=== PATIENT | female | born 2000 | race Caucasian/White ===

== ENCOUNTER 2020-05-25 20:39 | Inpatient (IN) | payer MEDICAID, SELFPAY ==
--- NOTE | ~2020-05-25 | CT_ITS ---
EXAMINATION: CT abdomen pelvis w con DATE: 05/25/2020 22:14 INDICATION: Left lower quadrant abdominal pain. TECHNIQUE: Computed tomography (CT) of the abdomen and pelvis was performed with 100 mL Omnipaque-350 intravenous contrast. Automated exposure control and iterative reconstruction technique were employe d. The dose-length product was 228.90 mGy-cm. COMPARISON: None FINDINGS: Lung bases are clear. Heart size is normal. No pericardial or pleural effusion. Liver, gallbladder, s pleen, pancreas, bilateral adrenal glands and right kidney are normal. Geographic regions of decrease d parenchymal enhancement throughout the left kidney with enhancing thickened urothelium at the left renal collecting system consistent with pyelitis and pyelonephritis. Diffuse bladder wall thickening likely related to cystitis. There is mild Richard colonic diverticulosis without adjacent inflammator y change to suggest diverticulitis. Small bowel and appendix are normal. There are several bilateral adnexa are normal with a few follicles at both ovaries. No free intraperitoneal gas or fluid. No path ologically enlarged abdominal or pelvic lymphadenopathy. Schmorl's node along the posterior superior endplate of S1. IMPRESSION: 1. Findings consistent with cystitis and left pyelonephritis. Correlate with urinalysis. Reviewed, dictated and finalized at location A. IMPRESSION: 1. Findings consistent with cystitis and left pyelonephritis. Correlate with ur inalysis.
--- NOTE | ~2020-05-25 | XR_ITS ---
EXAMINATION: XR chest 1V portable DATE: 05/25/2020 21:18 INDICATION: Shortness of breath, fever, body aches and lower back pain. TECHNIQUE: frontal view of the chest was obtained. COMPARISON: None FINDINGS: The lungs are clear with no focal airspace opacities, pulmonary edema, pleural effusion or pneumothor ax. The cardiomediastinal silhouette is normal. Visualized bones and soft tissues are unremarkable. IMPRESSION: 1. No acute cardiopulmonary disease. Reviewed, dictated and finalized at location A.
[2020-05-25 20:44] VITALS: BP 127/79; PULSE 140; RESP 22; TEMP 39.2; O2SAT 98
--- NOTE | 2020-05-25 20:55 | ECG_ITS ---
Measurements Intervals [place] Rate: 122 P: 54 CT: 127 QRS: 60 QRSD: 80 T: 22 QT: 286 QTc: 408 Interpretive Statements SINUS TACHYCARDIA ABNORMAL ECG Electronically Signed On 05-26-2020 6:57:17 CDT by Lorenzo Lamb D.O.
--- NOTE | 2020-05-25 21:08 | ED.GENADULT ---
HPI - General Adult General Chief complaint: Shortness of Breath/Dyspnea Stated complaint: Fever, Body Pain, Covid-19 Swab Time Seen by Provider: 05/25/20 20:53 Source: patient Mode of arrival: ambulatory History of Present Illness HPI narrative: Patient is a 20 y/o female complaining of fever, left lower abdominal pain and left back for last 1-2 days. She did not check her temperature and is not sure how high her fever was. She took Tylenol, which helped her fever. She denies any sorethroat, cough, vomiting or diarrhea. Of note, patient does not speak Indonesian. Interview is done through video spinning and winding supervisor. Related Data Home Medications Medication Instructions Recorded Confirmed No Home Medications 05/25/20 05/25/20 Allergies Allergy/AdvReac Type Severity Reaction Status Date / Time No Known Allergies Allergy Verified 05/25/20 21:04 Review of Systems Constitutional: Constitutional: Reports chills, Reports fever(s), Denies headache(s) and Denies weakness Eyes: Eyes: Denies blurry vision ENT: Denies headache(s) and Denies neck pain Cardiovascular: Cardiovascular: Denies chest pain and Denies dyspnea Respiratory: Respiratory: Denies cough and Reports dyspnea Gastrointestinal: Gastrointestinal: Reports abdominal pain, Denies diarrhea, Denies nausea and Denies vomiting Genitourinary: Genitourinary: Denies hematuria, Reports nocturia, Reports dysuria and Reports flank pain Musculoskeletal: Musculoskeletal: Reports back pain and Denies neck pain Neurologic: Denies headache(s) and Denies weakness PMFSH Social History Social History Smoking status: Never smoker Gender identity (if verbalized by the patient): Female Sexual Orientation (if Verbalized by the Patient): Straight or Heterosexual Exam Const: General: no acute distress and well developed Orientation/consciousness: oriented to person, oriented to place, oriented to time and patient oriented x3 HENMT: Head: normocephalic Ears: external ears normal General nose exam: Normal external nose present Eyes: General: appearance normal, both eyes and all related structures Conjunctivae: conjunctivae normal Neck: Neck: normal visual inspection and full ROM Chest: Chest palpation & inspection: normal inspection of the chest and no tenderness Resp: Effort & Inspection: normal respiratory effort Auscultation: clear to auscultation bilaterally Cardio: Rate: tachycardic Rhythm: regular rhythm GI: GI Palp: No abdominal tenderness and Yes Soft to palpation Skin: General skin exam: normal color and turgor normal Neuro: General: oriented to person, oriented to place, oriented to time and patient oriented x3 Cognition (Neuro): normal cognition Extrem: General: normal to inspection, full ROM and no pedal edema Psych: Appearance: grossly normal Mental Status: mental status grossly normal Affect: normal affect Course Consultations Consultation #1: Discussed with Dr. Fang, who agrees to admit. Date: 05/25/20 Time: 23:22 Vital Signs Vital signs: Vital Signs Temperature 39.2 C H 05/25/20 20:44 Pulse Rate 140 H 05/25/20 20:44 Respiratory Rate 22 H 05/25/20 20:44 Blood Pressure 127/79 05/25/20 20:44 Pulse Oximetry 98 05/25/20 20:44 Temperature 36.7 C 05/26/20 08:00 Pulse Rate 95 05/26/20 09:00 Respiratory Rate 20 05/26/20 09:00 Blood Pressure 112/58 L 05/26/20 08:00 Pulse Oximetry 100 05/26/20 09:00 Medical Decision Making Vital Signs Vital Signs: Vital Signs Temperature 39.2 C H 05/25/20 20:44 Pulse Rate 140 H 05/25/20 20:44 Respiratory Rate 22 H 05/25/20 20:44 Blood Pressure 127/79 05/25/20 20:44 Pulse Oximetry 98 05/25/20 20:44 Temperature 36.7 C 05/26/20 08:00 Pulse Rate 95 05/26/20 09:00 Respiratory Rate 20 05/26/20 09:00 Blood Pressure 112/58 L 05/26/20 08:00 Pulse Oximetry 100 05/26/20 09:00 Lab Data Result
[2020-05-25 21:26] LABS: Basophils Percent Auto 0.1 % (0.2-1.2); Hematocrit 41.3 % (37.0-47.0); Hemoglobin 14.1 g/dL (12.0-15.0); Immature Granulocyte Absolute 0.11 K/mm3 (0.00-0.031); Immature Granulocyte Percent A 0.7 % (0-0.5); Lymphocytes Absolute Auto 1.01 K/mm3 (0.9-3.2); Lymphocytes Percent Auto 6.3 % (18.3-44.2); Mean Corpuscular HGB Conc 34.1 g/dl (32-36); Mean Corpuscular Hemoglobin 29.2 pg (26-34); Mean Corpuscular Volume 85.5 fl (80-100); Mean Platelet Volume 9.2 fl (7.4-10.4); Monocytes Absolute Auto 1.3 K/mm3 (0.1-0.6); Monocytes Percent Auto 8.4 % (2.6-8.5); Neutrophils Absolute Auto 13.4 K/mm3 (1.3-6.7); Neutrophils Percent Auto 84.5 % (45.5-73.1); Platelet Count Result 314 k/mm3 (150-375); Red Blood Count 4.83 M/mm3 (4.2-5.4); Red Cell Distribution Width 12.5 % (11.5-14.5); White Blood Count 15.9 K/mm3 (4.5-10.0)
[2020-05-25 21:43] LABS: Alanine Aminotransferase 16 U/L (4-35); Albumin Level 4.3 g/dL (3.5-5.1); Alkaline Phosphatase 102 U/L (38-126); Anion Gap 10 mmol/L (8-16); Aspartate Amino Transferase 20 U/L (14-36); Bilirubin,Total 0.8 mg/dL (0.2-1.3); Blood Urea Nitrogen 9 mg/dL (7-17); Calcium 8.3 mg/dL (8.4-10.2); Carbon Dioxide 24 mmol/L (22-30); Chloride 101 mmol/L (98-107); Estimated Glomerular Filt Rate > 60; Glucose 116 mg/dL (65-105); Potassium 3.4 mmol/L (3.4-5.0); Sodium 135 mmol/L (137-145)
[2020-05-25 21:52] LABS: CRP 22.9 mg/dL (<1.0)
[2020-05-25] MEDS: ACETAMINOPHEN 325 MG TABLET 650 MG PO (21:52)
--- NOTE | 2020-05-25 22:00 | PC.NURSE ---
Translation line used to speak with patient regarding procedures.
[2020-05-25 22:10] LABS: Add Urine Microscopic? YES; Appearance Urine Cloudy (Clear); Bacteria Urine 1+ /hpf; Bilirubin Urine Negative (Negative); Blood Urine 2+ (Negative); Color Urine Yellow (Yellow); Glucose Urine UA Negative (Negative); Ketones Urine 1+ mg/dL (Negative); Leukocyte Esterase Ur 3+ LEU/UL (Negative); Mucus Urine Rare /lpf; Nitrate Urine Positive (Negative); Protein Urine 2+ mg/dL (Negative); Specific Grav Ur 1.018 (1.001-1.035); Squamous Epithelial Cell Urine Moderate /hpf (Few); WBC Urine >75 /hpf
[2020-05-25 22:12] LABS: Lactic Acid Reflex 0.5 mmol/L (0.7-2.1)
--- NOTE | 2020-05-25 23:15 | PC.NURSE ---
Translation line #[id number] used to inform patient and friend on Dr Suarez's intention to admit and diagnosis. Patient's questions answered via line. Patient in agreement Dr Suarez made aware
[2020-05-25 23:52] VITALS: BP 124/75; PULSE 108; RESP 18; TEMP 37.9; O2SAT 98
[2020-05-26] VITALS (10 sets, daily range): BP systolic 106–157; BP diastolic 57–80; PULSE 80–135; RESP 16–20; TEMP 36.7–39.6; O2SAT 99–100
--- NOTE | 2020-05-26 00:26 | ADMGEN ---
This patient, Patsy Coffman, was admitted to [facility] Surg Room 327-01. Patient/family oriented to hospital policies and general routines including ID bracelet, bed and alarms, visiting hours, pain management, procedures, bathroom and other care routines, personal items, smoking policy, room service/diet, and visiting hours. Valuables list has been completed. Information on how to activate the Rapid Response Team has been discussed. Patient/Family are encouraged to report perceived risks to care and to ask questions if they do not understand what they are told or what they should do.
[2020-05-26] MEDS: SODIUM CHLORIDE 0.9% IV 1,000 ML 125 ML IV CONT ×3 (00:28→22:06)
[2020-05-26 06:40] LABS: Basophils Percent Auto 0.2 % (0.2-1.2); Hematocrit 37.2 % (37.0-47.0); Hemoglobin 12.5 g/dL (12.0-15.0); Immature Granulocyte Absolute 0.09 K/mm3 (0.00-0.031); Immature Granulocyte Percent A 0.6 % (0-0.5); Lymphocytes Absolute Auto 1.54 K/mm3 (0.9-3.2); Lymphocytes Percent Auto 10.8 % (18.3-44.2); Mean Corpuscular HGB Conc 33.6 g/dl (32-36); Mean Corpuscular Hemoglobin 29.1 pg (26-34); Mean Corpuscular Volume 86.7 fl (80-100); Mean Platelet Volume 8.9 fl (7.4-10.4); Monocytes Absolute Auto 1.1 K/mm3 (0.1-0.6); Neutrophils Absolute Auto 11.4 K/mm3 (1.3-6.7); Neutrophils Percent Auto 80.4 % (45.5-73.1); Platelet Count Result 273 k/mm3 (150-375); Red Blood Count 4.29 M/mm3 (4.2-5.4); Red Cell Distribution Width 12.4 % (11.5-14.5); White Blood Count 14.2 K/mm3 (4.5-10.0)
[2020-05-26 06:53] LABS: Anion Gap 7 mmol/L (8-16); Blood Urea Nitrogen 6 mg/dL (7-17); Carbon Dioxide 27 mmol/L (22-30); Chloride 102 mmol/L (98-107); Estimated CRCL calculation 0 ml/min; Estimated Glomerular Filt Rate > 60; Glucose 106 mg/dL (65-105); Potassium 3.6 mmol/L (3.4-5.0); Sodium 136 mmol/L (137-145)
--- NOTE | 2020-05-26 12:07 | PM.IMHP ---
H&P: HPI History of Present Illness Date/Time: 05/26/20 12:07 Chief complaint: sepsis/pyelonephritis Narrative: Date of admission: 05/25/2020 Date of service: 05/26/2020 Patsy Coffman is a healthy 20 year old female who presented to the emergency department on 05/25/2020 with complaints of fever, body aches, and back pain. About 3 days ago, she developed left-sided lower abdominal pain. The next day she had fevers with T-max 104.0? and back pain on her left side. The following day she developed nausea, vomiting, headache, and body aches. She noticed that she was urinating frequently. Any time she took a drink of water she felt the urge to urinate. She denied dysuria or hematuria. She stated that when she developed a fever, she began taking amoxicillin. She took 3 doses of 500 mg amoxicillin. She got this medication from a pharmacy in [facility]. She is currently visiting here to see friends in the [place] At this time, she is feeling much better. She is anxious to leave. She still has back pain but has improved. She denies abdominal pain, nausea, vomiting, fever, chills, or diarrhea. She denies shortness of breath, cough, or chest pain. Her LMP was 1 week ago. Patient speaks Setswana and communication is performed with assistance of video tutor coordinator. Review of Systems Review of Systems: Narrative: A 12 point review of systems was reviewed with pertinent positives and negatives as per HPI. [facility] Past Medical History Medical History (Updated 05/26/20 @ 16:39 by Rocio Suresh PA-C) Healthy female adult Family History Family History (Updated 05/26/20 @ 16:41 by Rocio Suresh PA-C) Mother Gastric cancer Father No problems noted. Social History Social History (Updated 05/26/20 @ 16:43 by Rocio Suresh PA-C) Social History: Ms. Rojas lives in [facility] and is travelling to [place] for 2 months to visit friends. She lists her friend Jose Enrique as her surrogate decision maker ([phone]). She would like to be a full code. Smoking status: Never smoker Alcohol intake: current Alcohol use details: 1 drink per month Gender identity (if verbalized by the patient): Female Sexual Orientation (if Verbalized by the Patient): Straight or Heterosexual Meds Home Medications and Allergies Home Medications Medication Instructions Recorded Confirmed Type medroxyprogesterone [Depo-Provera] 150 mg IM MONTHLY 05/26/20 05/26/20 History Allergies Allergy/AdvReac Type Severity Reaction Status Date / Time No Known Allergies Allergy Verified 05/25/20 21:04 Vital Signs Vital Signs - 24 hr 05/25/20 20:44 05/25/20 23:52 05/26/20 00:24 Temperature 102.6 F H 100.2 F H 103.2 F H Pulse Rate 140 H 108 H 135 H Respiratory Rate 22 H 18 20 Blood Pressure 127/79 124/75 157/77 H Pulse Oximetry 98 98 99 05/26/20 01:03 05/26/20 01:44 05/26/20 04:00 Temperature 103.2 F H 100.4 F H 98.2 F Pulse Rate 95 Respiratory Rate 20 Blood Pressure 106/57 L Pulse Oximetry 100 05/26/20 08:00 05/26/20 09:00 Temperature 98.0 F Pulse Rate 99 95 Respiratory Rate 18 20 Blood Pressure 112/58 L Pulse Oximetry 100 100 Exam Narrative: Exam Narrative: Ms. Coffman is a well-nourished 20-year-old female who is lying supine in bed. She appears comfortable and is in no acute respiratory distress. HR 95, BP 106/57, R 20, T 98.7?, 100% on room air Neuro: awake, alert and oriented x4, speech clear, no focal neuro deficits noted HEENMT: normocephalic, atraumatic, EOMI, sclerae anicteric, moist oral mucosa, tongue midline, nares patent Neck: supple, no lymphadenopathy Respiratory: clear to auscultation bilaterally, nonlabored breathing Cardio: regular rate, regular rhythm, no murmur noted Abdomen: nondistended, normoactive bowel sounds, soft, nontender to palpation, no rigidity or guarding : left CVA tenderness Extremities: no edema, erythema, cyanosis, clubbi
[2020-05-26 14:24] LABS: SARS-CoV-2 RNA PCR Negative
[2020-05-26] MEDS: ACETAMINOPHEN 325 MG TABLET 650 MG PO (22:06)
[2020-05-27 02:00] VITALS: BP 118/71; PULSE 102; RESP 16; TEMP 36.9; O2SAT 99
[2020-05-27 06:00] VITALS: BP 112/67; PULSE 95; RESP 16; TEMP 36.9; O2SAT 100
[2020-05-27 06:14] LABS: Basophils Percent Auto 0.2 % (0.2-1.2); Eosinophils Percent Auto 0.2 % (0-4.4); Hematocrit 35.4 % (37.0-47.0); Hemoglobin 11.8 g/dL (12.0-15.0); Immature Granulocyte Absolute 0.04 K/mm3 (0.00-0.031); Immature Granulocyte Percent A 0.4 % (0-0.5); Lymphocytes Percent Auto 21.6 % (18.3-44.2); Mean Corpuscular HGB Conc 33.3 g/dl (32-36); Mean Corpuscular Hemoglobin 28.9 pg (26-34); Mean Corpuscular Volume 86.8 fl (80-100); Mean Platelet Volume 9.2 fl (7.4-10.4); Monocytes Absolute Auto 1.4 K/mm3 (0.1-0.6); Monocytes Percent Auto 14.8 % (2.6-8.5); Neutrophils Absolute Auto 5.8 K/mm3 (1.3-6.7); Neutrophils Percent Auto 62.8 % (45.5-73.1); Platelet Count Result 282 k/mm3 (150-375); Red Blood Count 4.08 M/mm3 (4.2-5.4); Red Cell Distribution Width 12.3 % (11.5-14.5); White Blood Count 9.3 K/mm3 (4.5-10.0)
[2020-05-27 06:27] LABS: Anion Gap 7 mmol/L (8-16); Blood Urea Nitrogen 5 mg/dL (7-17); Calcium 7.8 mg/dL (8.4-10.2); Carbon Dioxide 26 mmol/L (22-30); Chloride 104 mmol/L (98-107); Estimated CRCL calculation 0 ml/min; Estimated Glomerular Filt Rate > 60; Glucose 93 mg/dL (65-105); Potassium 3.5 mmol/L (3.4-5.0); Sodium 137 mmol/L (137-145)
[2020-05-27 08:00] VITALS: PULSE 95; RESP 16; O2SAT 100
[2020-05-27] MEDS: SODIUM CHLORIDE 0.9% IV 1,000 ML 125 ML IV CONT (10:31)
[2020-05-27 14:00] VITALS: BP 134/76; PULSE 75; RESP 16; TEMP 36.6; O2SAT 100
--- NOTE | 2020-05-27 14:26 | PM.DS ---
DS: Admitting Diagnosis Admitting Diagnosis Admitting Diagnosis: sepsis/pyelonephritis DS: Discharge Diagnosis Discharge Diagnosis (1) Sepsis: Qualifiers: Sepsis acute organ dysfunction status: unspecified Sepsis type: sepsis due to unspecified organism Qualified Code(s): A41.9 - Sepsis, unspecified organism Code(s): A41.9 - Sepsis, unspecified organism Status: Acute Assessment and Plan: Patient met SIRS criteria based on leukocytosis, fever, and tachycardia. Source of infection was urinary. Lactic was 0.5. She was started on IV Rocephin and was given IV fluids. Sepsis resolved. Preliminary blood cultures showed NGTD and final cultures will be monitored. (2) Pyelonephritis: Code(s): N12 - Tubulo-interstitial nephritis, not specified as acute or chronic Status: Acute Assessment and Plan: UA was grossly abnormal. CT a/p shows findings consistent with cystitis and left pyelonephritis. She had left CVA tenderness. Urine culture grew >100,000 CFU E. coli with sensitivity to Rocephin. She will continue PO Cefdinir bid for 10 days. She was scheduled for a follow up appointment on 06/09/20. DS: Summary Hospital Course Reason for hospitalization: Fever Hospital Course: Date of admission: 05/25/2020 Date of discharge: 05/27/2020 Patsy Coffman is a healthy 20 year old female who presented to the emergency department on 05/25/2020 with complaints of fever, body aches, and back pain. About 3 days ago, she developed left-sided lower abdominal pain. The next day she had fevers with T-max 104.0? and back pain on her left side. The following day she developed nausea, vomiting, headache, and body aches. She endorsed frequency but dysuria or hematuria. She stated that when she developed a fever, she began taking amoxicillin. She took 3 doses of 500 mg amoxicillin. She got this medication from a pharmacy in [facility]. She is currently visiting the [place] to see friends. Of note, patient is Frisian speaking and all communication was performed with assistance of video proposal consultant. At presentation, she was febrile at , HR 140, WBC 14.2, lactic 0.5, UA grossly abnormal. Bedside test was negative. She was swabbed for COVID-19 which was negative. She was admitted to the hospitalist service for further evaluation and management. Please see above for further details. Her sepsis resolved. She remained afebrile >36 hours and leukocytosis resolved. CVA tenderness resolved. She began feeling much better and was eager for discharge. Given her overall improvement and stable vitals, she was determined to no longer require inpatient care. I spent extensive time counseling her on antibiotic therapy and worrisome signs and symptoms for which to return. I encouraged her to maintain adequate hydration. I scheduled her an appointment at [facility] in [place] with a Frisian speaking provider for follow up in 1.5 weeks and she is aware that she needs to attend this appointment. All questions were answered. She was discharged in hemodynamically stable condition on 05/27/2020. Status at Discharge Functional status at discharge: independent ambulation Overall status at discharge: patient is back to baseline Time Spent with Patient Time attestation: Total time spent providing and/or coordinating discharge services:39 minutes Time spent: Greater than 30 minutes Exam Narrative: Exam Narrative: Ms. Cofmfan is a well-nourished 20-year-old female who is lying supine in bed. She appears comfortable and is in no acute respiratory distress. HR 75, BP 134/76, R 16, T 97.8?, 100% on room air Neuro: awake, alert and oriented x4, speech clear, no focal neuro deficits noted HEENMT: normocephalic, atraumatic, EOMI, sclerae anicteric, moist oral mucosa, tongue midline, nares patent Neck: supple, no lymphadenopathy Respiratory: clear to auscultation bilaterally, nonlabored breathing Cardio: regular rate, regular r
== END 2020-05-27 17:50 | disposition home or self-care (01) | DRG 720 ==
LOC: ANHED 23:35 → ANH3MEDSUR 05-26 00:06
PROVIDERS: Physician Assistant; Admitting Provider Family Medicine; Emergency Provider Emergency Medicine; Visit Provider Internal Medicine
DX: A41.9 Sepsis, unspecified organism (principal); N12 Tubulo-interstitial nephritis, not specified as acute or chronic; B96.20 Unspecified Escherichia coli [E. coli] as the cause of diseases classified elsewhere; Z20.828 Contact with and (suspected) exposure to other viral communicable diseases; Z79.3 Long term (current) use of hormonal contraceptives
CPT/HCPCS: 36415; 71045; 74177; 80048; 80053; 81001; 81025; 83605; 85025; 86140; 87040; 87077; 87086; 87088; 87186; 87635; 93005; 96361; 96365; 96375; 99285; A9270; C9803; G0378; G0379; J0131; J0696; J7030; J7120; Q9967; U0003

== ENCOUNTER 2020-06-18 19:51 | Inpatient (IN) | payer MEDICAID, SELFPAY ==
--- NOTE | ~2020-06-18 | CT_ITS ---
EXAMINATION: CT abdomen pelvis w con EXAM DATE: 06/18/2020 22:27 INDICATION: Abdominal pain, fever. TECHNIQUE: Spiral CT of the abdomen and pelvis was performed following intravenous injection of 100 m L Omnipaque 350. Axial, coronal and sagittal images were reviewed. The dose-length product (DLP) fo r this examination was 301.36 mGy-cm. The exposure was tailored according to patient size (auto mA e xposure control), and iterative reconstruction (ASIR) was used as additional dose reduction technique . Comparison is made to prior examination from 05/25/2020. FINDINGS: The liver, spleen, adrenal glands and pancreas are unremarkable. Gallbladder is unremarkab le. No biliary obstruction. There is enhancing left ureteral urothelium, and some regions of heterog eneous left renal enhancement, appearance consistent with pyelonephritis. No obstructive nephropathy. The uterus is anteverted and morphologically normal. The bladder is unremarkable. There is no ret roperitoneal or pelvic lymphadenopathy. Some respiratory motion, the appendix is not positively identified. The cecal base is located deep in the pelvis. The stomach and small bowel are unremarkable. There is moderate amount of colonic stoo l. No free intraperitoneal gas. The heart is normal in size. There are no pericardial or pleural effusions. The lung bases are unremarkable. There are no osteoblastic or osteolytic lesions identi fied. IMPRESSION: Acute left-sided pyelonephritis, similar appearance to exam from 3 weeks ago. Reviewed, dictated and finalized at location A.
[2020-06-18 20:08] VITALS: BP 149/79; PULSE 140; RESP 18; TEMP 39.5; O2SAT 100
--- NOTE | 2020-06-18 20:08 | ED.ABDPAIN ---
HPI - Abdominal Pain General Chief Complaint: Urogenital-Female Stated Complaint: fever, back pain Time Seen by Provider: 06/18/20 20:05 Source: RN notes reviewed History of Present Illness HPI narrative: Patient presents emergency department from home for flank pain and fever. Patient states symptoms began last night. States she has pain located in the right flank that radiates around to the abdomen. Associated with a fever that began last night. Patient denies any cough shortness of breath vomiting diarrhea or any other symptoms. Was admitted to [facility] proximally 1 month ago with pyelonephritis and finished all medications at that time but is had no follow-up since that time Related Data Home Medications Medication Instructions Recorded Confirmed medroxyprogesterone [Depo-Provera] 150 mg IM MONTHLY 05/26/20 05/26/20 Allergies Allergy/AdvReac Type Severity Reaction Status Date / Time No Known Allergies Allergy Verified 06/18/20 20:13 Review of Systems Review of Systems: Narrative: Gen.: Denies fevers or chills ENT: Denies congestion Respiratory: Denies shortness of breath or cough CV: Denies chest pain or palpitations GI: See HPI denies burning, urgency, frequency or hematuria Musculoskeletal: Denies back pain or muscle pain Neuro: Denies numbness, tingling, weakness or focal weakness Skin: Denies rash Except as documented, all other systems reviewed and negative [facility] Past Medical History Medical History Healthy female adult Family History Family History (Updated 05/26/20 @ 16:41 by Rocio Suresh PA-C) Mother Gastric cancer Father No problems noted. Social History Social History Social History: Ms. Rojas lives in [facility] and is travelling to [place] for 2 months to visit friends. She lists her friend Jose Enrique as her surrogate decision maker ([phone]). She would like to be a full code. Smoking status: Never smoker Alcohol intake: current Gender identity (if verbalized by the patient): Female Exam Narrative: Exam Narrative: APPEARANCE: No acute distress, nontoxic, resting in bed EYES: EOMI HEENT: Normocephalic, atraumatic, OMM RESPIRATORY: No respiratory distress Clear to auscultation bilaterally with no rhonchi wheezing or rales. CARDIOVASCULAR: Tachycardic and regular without murmurs rubs or gallops. ABDOMINAL: Soft, nontender, nondistended, no rebound or guarding bilateral flank tenderness to palpation MUSCULOSKELETAl: Moves all extremities. No clubbing, cyanosis or edema. NEURO: Awake and alert. Following commands, speech normal, no focal deficits SKIN:: Warm, dry. No rashes lesions or abrasions PSYCHIATRIC: Normal affect/mood, Course Course Emergency Course: Discussed with Dr. Fang presentation work-up. Agrees with admission at this time. At this time with recurrent pyelonephritis will put in a.m. consult to urology Discussed with patient and family results of workup and diagnosis. Discussed need for admission. Patient and family understand and agree to current treatment plan Vital Signs Vital signs: Vital Signs Temperature 103.1 F H 06/18/20 20:08 Pulse Rate 140 H 06/18/20 20:08 Respiratory Rate 18 06/18/20 20:08 Blood Pressure 149/79 H 06/18/20 20:08 Pulse Oximetry 100 06/18/20 20:08 Temperature 98.6 F 06/18/20 21:50 Pulse Rate 113 H 06/18/20 21:30 Respiratory Rate 16 06/18/20 21:30 Blood Pressure 109/58 L 06/18/20 21:30 Pulse Oximetry 98 06/18/20 21:30 MDM - Abdominal Pain Lab Data Result diagrams: 06/18/20 20:30 06/18/20 20:30 Labs: Lab Results 06/18/20 06/18/20 06/18/20 Range/Units 20:30 20:30 20:30 WBC 12.6 H (4.5-10.0) K/mm3 RBC 5.03 (4.2-5.4) M/mm3 Hgb 14.8 D (12.0-15.0) g/dL Hct 43.6 (37.0-47.0) % MCV 86.7 (80-100)
[2020-06-18] MEDS: SODIUM CHLORIDE 0.9% IV 1,000 ML 999 ML IV CONT ×2 (20:36)
[2020-06-18 20:38] LABS: Basophils Percent Auto 0.2 % (0.2-1.2); Hematocrit 43.6 % (37.0-47.0); Hemoglobin 14.8 g/dL (12.0-15.0); Immature Granulocyte Absolute 0.05 K/mm3 (0.00-0.031); Immature Granulocyte Percent A 0.4 % (0-0.5); Lymphocytes Absolute Auto 0.97 K/mm3 (0.9-3.2); Lymphocytes Percent Auto 7.7 % (18.3-44.2); Mean Corpuscular HGB Conc 33.9 g/dl (32-36); Mean Corpuscular Hemoglobin 29.4 pg (26-34); Mean Corpuscular Volume 86.7 fl (80-100); Mean Platelet Volume 9.3 fl (7.4-10.4); Monocytes Absolute Auto 1.1 K/mm3 (0.1-0.6); Monocytes Percent Auto 8.6 % (2.6-8.5); Neutrophils Absolute Auto 10.5 K/mm3 (1.3-6.7); Neutrophils Percent Auto 83.1 % (45.5-73.1); Platelet Count Result 319 k/mm3 (150-375); Red Blood Count 5.03 M/mm3 (4.2-5.4); Red Cell Distribution Width 13.2 % (11.5-14.5); White Blood Count 12.6 K/mm3 (4.5-10.0)
[2020-06-18 20:50] LABS: Alanine Aminotransferase 19 U/L (4-35); Albumin Level 4.8 g/dL (3.5-5.1); Alkaline Phosphatase 96 U/L (38-126); Anion Gap 11 mmol/L (8-16); Aspartate Amino Transferase 26 U/L (14-36); Bilirubin,Total 0.8 mg/dL (0.2-1.3); Blood Urea Nitrogen 7 mg/dL (7-17); Carbon Dioxide 26 mmol/L (22-30); Chloride 99 mmol/L (98-107); Estimated CRCL calculation 108 ml/min; Estimated Glomerular Filt Rate > 60; Glucose 121 mg/dL (65-105); Lactic Acid Reflex 2.9 mmol/L (0.7-2.1); Potassium 3.7 mmol/L (3.4-5.0); Sodium 136 mmol/L (137-145)
[2020-06-18 21:16] LABS: Add Urine Microscopic? YES; Appearance Urine Cloudy (Clear); Bacteria Urine 3+ /hpf; Bilirubin Urine Negative (Negative); Blood Urine 3+ (Negative); Color Urine Yellow (Yellow); Glucose Urine UA Negative (Negative); Ketones Urine Negative (Negative); Leukocyte Esterase Ur 3+ LEU/UL (Negative); Mucus Urine Few /lpf; Nitrate Urine Positive (Negative); Protein Urine 1+ mg/dL (Negative); RBC Urine 21-50 /hpf (0-2); Squamous Epithelial Cell Urine Many /hpf (Few); WBC Urine >75 /hpf
[2020-06-18 21:30] VITALS: BP 109/58; PULSE 113; RESP 16; O2SAT 98
[2020-06-18 21:50] VITALS: TEMP 37
[2020-06-18 23:00] VITALS: BP 121/70; PULSE 101; RESP 18; O2SAT 99
--- NOTE | 2020-06-18 23:20 | PM.IMHP ---
H&P: HPI History of Present Illness Date/Time: 06/18/20 23:20 Chief complaint: fever, back pain Narrative: This is a pleasant 20 year old female who was recently admitted one month ago for pyelonephritis and who returned to the hospital today with a complaint of right flank pain that radiates down towards her groin with associated fever that started last night. She believes that her last urinary tract infection was on the left side. She denies any burning urination, hematuria, nausea, vomiting, diarrhea, headache, chest pain, shortness of breath, cough, or LE swelling. CT abd pelvis demonstrated acute left-sided pyelonephritis, similar appearance to exam from 3 weeks ago. Routine labs demonstrated that the patient is severely septic tonight. Urinalysis was grossly abnormal. Last urine culture grew out E. coli. She has been treated w/ IV fluids and antibiotics. No other complaints. Review of Systems Review of Systems: All systems reviewed & are unremarkable except as noted in HPI and below PMFSH Past Medical History Medical History Healthy female adult Family History Family History Mother Gastric cancer Father No problems noted. Social History Social History Social History: Ms. Rojas lives in [place] and is travelling to [place] for 2 months to visit friends. She lists her friend Jose Enrique as her surrogate decision maker ([phone]). She would like to be a full code. Smoking status: Never smoker Alcohol intake: current Gender identity (if verbalized by the patient): Female Meds Home Medications and Allergies Home Medications Medication Instructions Recorded Confirmed Type medroxyprogesterone [Depo-Provera] 150 mg IM MONTHLY 05/26/20 05/26/20 History Allergies Allergy/AdvReac Type Severity Reaction Status Date / Time No Known Allergies Allergy Verified 06/18/20 20:13 Vital Signs Vital Signs - 24 hr 06/18/20 20:08 06/18/20 21:30 06/18/20 21:50 Temperature 39.5 C H 37.0 C Pulse Rate 140 H 113 H Respiratory Rate 18 16 Blood Pressure 149/79 H 109/58 L Pulse Oximetry 100 98 Exam Const: General: cooperative, no acute distress, alert and awake Nutritional Appearance: well nourished Orientation/consciousness: patient oriented x3 HENMT: Head: normal to inspection General nose exam: Normal external nose present Face and sinus: normal facial exam Mouth: Yes Normal oral and palatal mucosa present and Yes oropharynx normal Eyes: Pupils: Equal, round and reactive pupils present EOM: EOMs intact bilaterally Neck: Neck: supple and no JVD Thyroid: thyroid normal Lymphatic: lymphadenopathy not noted Resp: Effort & Inspection: normal respiratory effort Auscultation: clear to auscultation bilaterally Cardio: Rate: regular rate Rhythm: regular rhythm Heart sounds: no murmurs GI: Inspection: normal to inspection Auscultation: normal bowel sounds Back/Spine/Pelvis: Back: CVA tenderness (right sided++ ) Skin: General skin exam: normal color and no rashes or lesions noted Neuro: General: patient oriented x3 Cranial nerves: Yes CN's II-XII intact bilaterally and Yes Equal, round and reactive pupils present Speech: normal speech Motor exam (neuro): 5/5 motor strength present throughout Sensory Exam: normal sensation Extrem: General: normal to inspection and no edema Psych: Mental Status: mental status grossly normal Affect: normal affect H&P: Results Labs Labs: Short CBC 06/18/20 Range/Units 20:30 WBC 12.6 H (4.5-10.0) K/mm3 Hgb 14.8 D (12.0-15.0) g/dL Hct 43.6 (37.0-47.0) % Plt Count 319 (150-375) k/mm3 BMP 06/18/20 20:30 Sodium 136 L Potassium 3.7 Chloride 99 Carbon Dioxide 26 BUN 7 Creatinine 0.60 L Glucose 121 H Calcium 9.0 Liver F
[2020-06-18 23:36] LABS: Reflex Lactic Acid Yes or No Add Lactic
[2020-06-19] VITALS (11 sets, daily range): BP systolic 116–140; BP diastolic 53–81; PULSE 102–126; RESP 16–21; TEMP 36.8–39.2; O2SAT 100
[2020-06-19 00:12] LABS: Lactic Acid 0.7 mmol/L (0.7-2.1)
--- NOTE | 2020-06-19 00:29 | ADMGEN ---
This patient, Patsy Coffman, was admitted to Medical Room 245-. Patient/family oriented to hospital policies and general routines including ID bracelet, bed and alarms, visiting hours, pain management, procedures, bathroom and other care routines, personal items, smoking policy, room service/diet, and visiting hours. Valuables list has been completed. Information on how to activate the Rapid Response Team has been discussed. Patient/Family are encouraged to report perceived risks to care and to ask questions if they do not understand what they are told or what they should do.
[2020-06-19] MEDS: SODIUM CHLORIDE 0.9% IV 1,000 ML 125 ML IV CONT (01:09)
[2020-06-19] MEDS: ONDANSETRON INJ 4 MG/2 ML VIAL IV PUSH (01:09)
[2020-06-19 05:02] LABS: Basophils Percent Auto 0.1 % (0.2-1.2); Hematocrit 34.9 % (37.0-47.0); Hemoglobin 11.6 g/dL (12.0-15.0); Immature Granulocyte Absolute 0.08 K/mm3 (0.00-0.031); Immature Granulocyte Percent A 0.6 % (0-0.5); Lymphocytes Absolute Auto 1.21 K/mm3 (0.9-3.2); Lymphocytes Percent Auto 8.8 % (18.3-44.2); Mean Corpuscular HGB Conc 33.2 g/dl (32-36); Mean Corpuscular Hemoglobin 28.6 pg (26-34); Mean Corpuscular Volume 86.2 fl (80-100); Mean Platelet Volume 9.2 fl (7.4-10.4); Monocytes Absolute Auto 1.4 K/mm3 (0.1-0.6); Neutrophils Absolute Auto 11.1 K/mm3 (1.3-6.7); Neutrophils Percent Auto 80.5 % (45.5-73.1); Platelet Count Result 253 k/mm3 (150-375); Red Blood Count 4.05 M/mm3 (4.2-5.4); Red Cell Distribution Width 12.9 % (11.5-14.5); White Blood Count 13.7 K/mm3 (4.5-10.0)
[2020-06-19 05:27] LABS: Anion Gap 7 mmol/L (8-16); Blood Urea Nitrogen 4 mg/dL (7-17); Calcium 7.7 mg/dL (8.4-10.2); Carbon Dioxide 22 mmol/L (22-30); Chloride 105 mmol/L (98-107); Estimated CRCL calculation 127 ml/min; Estimated Glomerular Filt Rate > 60; Glucose 115 mg/dL (65-105); Potassium 3.1 mmol/L (3.4-5.0); Sodium 134 mmol/L (137-145)
--- NOTE | 2020-06-19 08:36 | PM.IMPN ---
Progress Note: A&P Assessment and Plan (1) Severe sepsis: Code(s): A41.9 - Sepsis, unspecified organism; R65.20 - Severe sepsis without septic shock Status: Acute Assessment and Plan: Supported by fever, tachycardia, and leukocytosis. Lactic acid was elevated at 2.9 and reflex is 0.7. Source of sepsis appears to be urinary. Monitor urine output and vital signs closely. Continue IV hydration. Blood cultures were ordered and are pending. (2) Pyelonephritis: Code(s): N12 - Tubulo-interstitial nephritis, not specified as acute or chronic Status: Acute Assessment and Plan: UA is grossly abnormal with evidence of left sided pyelonephritis on CT abd/pelvis. Urine culture is pending. She was recently hospitalized for pyelonephritis 05/2020 due to E. coli susceptible to ceftriaxone (resistant to augmentin, ampicillin, cefazolin). Continue IV ceftriaxone as she notes significant improvement. Continue IV fluids. Continue acetaminophen PRN fever and pain. Urology was consulted from the emergency department and input is greatly appreciated. Await urine culture. (3) Hypokalemia: Code(s): E87.6 - Hypokalemia Status: Acute Assessment and Plan: Potassium is 3.1. Replace with 40 mEq PO potassium. Repeat BMP tomorrow. (4) Elevated fasting glucose: Code(s): R73.01 - Impaired fasting glucose Status: Acute Assessment and Plan: Glucose was 115. Check hemoglobin A1c. Time Spent With Patient Time with patient: 15 - 25 minutes Subjective Date/time seen: 06/19/20 08:36 Interval history: Mrs. Crystal Coffman is a 20 y.o. female with PMH significant for UTI who is seen in follow-up for pyelonephritis. She was recently treated for left pyelonephritis 05/2020. She feels much better today. She is no longer nauseous and requests breakfast. She is not having any vomiting, flank pain, or abdominal pain. She denies dysuria, urgency, and frequency. She denies chest pain, dyspnea, calf pain, and swelling. She denies subjective fever and chills today. Review of Systems Review of Systems: All systems reviewed & are unremarkable except as noted in HPI and below Exam Narrative: Exam Narrative: General: Pleasant, well-developed, well-nourished, healthy-appearing 20 y.o. female lying supine in bed resting and in no acute distress. She is seen in consultation by the iPAD chute tender. HEENT: Normocephalic and atraumatic. Sclerae anicteric. Conjunctivae and lids normal. EOMI. Oral mucosa moist. Neck: Supple without lymphadenopathy or masses. Cardiac: Regular rate and rhythm. S1 and S2 normal. No murmur appreciated. Lungs: Lungs clear to auscultation bilaterally. Abdomen: Appearance grossly normal. Bowel sounds present in all four quadrants. Abdomen is soft, non-distended, and mildly tender in the suprapubic area. : No CVA tenderness. Extremities: No lower extremity edema or cyanosis. Negative columba sign. Dorsalis pedis and posterior tibial 2+. Neurological: Alert. No focal neurological deficits noted to casual conversation. Speech is clear. Skin: Warm and dry. Psychiatric: Judgment and insight intact. Pleasant mood and normal affect. Objective Data Vital Signs Vital Signs: Vital Signs - 24 hr 06/18/20 20:08 06/18/20 21:30 06/18/20 21:50 Temperature 103.1 F H 98.6 F Pulse Rate 140 H 113 H Respiratory Rate 18 16 Blood Pressure 149/79 H 109/58 L Pulse Oximetry 100 98 06/18/20 23:00 06/19/20 00:20 06/19/20 03:34 Temperature 99.2 F 101.2 F H Pulse Rate 101 H 115 H Respiratory Rate 18 18 Blood Pressure 121/70 135/81 Pulse Oximetry 99 100 06/19/20 04:00 06/19/20 04:04 06/19/20 04:15 Temperature 101.3 F H 98.8 F 99.5 F Pulse Rate 126 H 102 H Respiratory Rate 18 Blood Pressure 116/53 L Pulse Oximetry 100 06/19/20 05:53 Temperature 98.3 F Pulse Rate Respiratory Rate Blood Pressure Pulse Oximetry Intake/Output Intake/Out
[2020-06-19] MEDS: SODIUM CHLORIDE 0.9% IV 1,000 ML 75 ML IV CONT ×2 (09:07→21:27)
[2020-06-19] MEDS: POTASSIUM CHLORIDE 20 MEQ TABLET 40 MEQ PO (09:08)
--- NOTE | 2020-06-19 09:34 | PC.NURSE ---
Reel Repairer used for morning assessment, medication administration, etc. Reel Repairer #[id number]. Patient reported no current complaints of pain, last BM 06/18/2020, verbalized understanding of potassium PO medications and antibiotics. No further questions at this time.
--- NOTE | 2020-06-19 10:02 | WPDURCON ---
Assessment and Plan Assessment and plan (1) Pyelonephritis: Code(s): N12 - Tubulo-interstitial nephritis, not specified as acute or chronic Status: Acute Assessment and Plan: Continue Rocephin, tailor antibiotics to culture results. Would recommend starting patient on prophylactic antibiotics post treatment of pyelonephritis for three months, then follow up in the office to re-assess. No further evaluation needed at this time as CT shows normal upper tracts. Urology Consult Note HPI Date Seen: 06/19/20 Requesting Physician: Fabiola Seals PA-C Primary Care Provider: DATA MIGRATION CONSULTANT PHYSICIAN Consult Narrative Narrative: Patsy Coffman is a 20 year old female who presented to the ER yesterday for fever and left flank pain. She denies hematuria, dysuria, nausea or vomiting. She had been treated for pyelonephritis a month ago here and her urine culture grew E-Coli, she states her symptoms improved, but then started again yesterday suddenly. She did finish her previous antibiotics. CT scan from 05/25/2020 shows acute left pyelonephritits with minimal to no change on CT from 06/18/2020 of abdomen/pelvis. UA is suggestive of UTI again and urine culture is pending. She has a WBC of 13.7 and creatinine of 0.50. Upper tracts are otherwise normal on CT. She states she has never had a UTI prior to this and has never seen a Urologist. Review of Systems Constitutional: Constitutional: Reports fever(s) Cardiovascular: Cardiovascular: Denies chest pain Respiratory: Respiratory: Reports no additional respiratory complaints Gastrointestinal: Gastrointestinal: Reports abdominal pain, Denies nausea and Denies vomiting Genitourinary: Genitourinary: Denies hematuria, Denies dysuria, Denies pelvic pain, Reports flank pain, Denies urinary hesitancy and Denies urinary urgency PMFSH Past Medical History Medical History Healthy female adult Family History Family History Mother Gastric cancer Father No problems noted. Social History Social History Social History: Ms. Rojas lives in [facility] and is travelling to [place] for 2 months to visit friends. She lists her friend Jose Enrique as her surrogate decision maker ([phone]). She would like to be a full code. Smoking status: Never smoker Second hand tobacco smoke exposure: No Alcohol intake: never Substance use: never Substance use type: does not use Gender identity (if verbalized by the patient): Female Spiritual care concerns: No Meds Home Medications and Allergies Home Medications Medication Instructions Recorded Confirmed Type medroxyprogesterone [Depo-Provera] 150 mg IM MONTHLY 05/26/20 06/19/20 History Allergies Allergy/AdvReac Type Severity Reaction Status Date / Time No Known Allergies Allergy Verified 06/18/20 20:13 Vital Signs Vital Signs - 24 hr 06/18/20 20:08 06/18/20 21:30 06/18/20 21:50 Temperature 103.1 F H 98.6 F Pulse Rate 140 H 113 H Respiratory Rate 18 16 Blood Pressure 149/79 H 109/58 L Pulse Oximetry 100 98 06/18/20 23:00 06/19/20 00:20 06/19/20 03:34 Temperature 99.2 F 101.2 F H Pulse Rate 101 H 115 H Respiratory Rate 18 18 Blood Pressure 121/70 135/81 Pulse Oximetry 99 100 06/19/20 04:00 06/19/20 04:04 06/19/20 04:15 Temperature 101.3 F H 98.8 F 99.5 F Pulse Rate 126 H 102 H Respiratory Rate 18 Blood Pressure 116/53 L Pulse Oximetry 100 06/19/20 05:53 Temperature 98.3 F Pulse Rate Respiratory Rate Blood Pressure Pulse Oximetry Exam Resp: Effort & Inspection: normal respiratory effort Cardio: Rate: tachycardic GI: GI Palp: No abdominal tenderness, Yes Soft to palpation and No Tenderness to palpation present (GI) : General: Yes CVA tenderness on the left
--- NOTE | 2020-06-19 14:19 | PC.NURSE ---
Spoke with patient using vp clinical research regarding her elevated temperature and administration of ofirmev. Patient verbalized understanding. Auto Rebuilder Ricardo #[id number].
[2020-06-20 06:00] VITALS: BP 129/62; PULSE 90; RESP 21; TEMP 36.8; O2SAT 100
[2020-06-20 06:07] LABS: Basophils Percent Auto 0.2 % (0.2-1.2); Eosinophils Percent Auto 0.1 % (0-4.4); Hematocrit 35.2 % (37.0-47.0); Hemoglobin 11.9 g/dL (12.0-15.0); Immature Granulocyte Absolute 0.04 K/mm3 (0.00-0.031); Immature Granulocyte Percent A 0.4 % (0-0.5); Lymphocytes Absolute Auto 1.96 K/mm3 (0.9-3.2); Lymphocytes Percent Auto 18.5 % (18.3-44.2); Mean Corpuscular HGB Conc 33.8 g/dl (32-36); Mean Corpuscular Hemoglobin 29.2 pg (26-34); Mean Corpuscular Volume 86.3 fl (80-100); Mean Platelet Volume 9.4 fl (7.4-10.4); Monocytes Absolute Auto 1.3 K/mm3 (0.1-0.6); Monocytes Percent Auto 12.2 % (2.6-8.5); Neutrophils Absolute Auto 7.3 K/mm3 (1.3-6.7); Neutrophils Percent Auto 68.6 % (45.5-73.1); Platelet Count Result 242 k/mm3 (150-375); Red Blood Count 4.08 M/mm3 (4.2-5.4); White Blood Count 10.6 K/mm3 (4.5-10.0)
[2020-06-20 06:14] LABS: Anion Gap 8 mmol/L (8-16); Blood Urea Nitrogen 3 mg/dL (7-17); Calcium 7.7 mg/dL (8.4-10.2); Carbon Dioxide 23 mmol/L (22-30); Chloride 104 mmol/L (98-107); Estimated CRCL calculation 155 ml/min; Estimated Glomerular Filt Rate > 60; Glucose 105 mg/dL (65-105); Magnesium 1.8 mg/dL (1.6-2.3); Potassium 3.2 mmol/L (3.4-5.0); Sodium 135 mmol/L (137-145)
[2020-06-20 07:25] LABS: Hemoglobin A1C 4.9 % (<5.7)
--- NOTE | 2020-06-20 09:02 | PM.IMPN ---
Progress Note: A&P Assessment and Plan (1) Severe sepsis: Code(s): A41.9 - Sepsis, unspecified organism; R65.20 - Severe sepsis without septic shock Status: Acute Assessment and Plan: Supported by fever, tachycardia, and leukocytosis. Lactic acid was elevated at 2.9 and reflex is 0.7. Source of sepsis appears to be urinary. Monitor urine output and vital signs closely. Continue IV hydration. Preliminary blood cultures reveal no growth today. She was febrile yesterday Tmax 102.6F. She is afebrile today. WBC is improving. (2) Pyelonephritis: Code(s): N12 - Tubulo-interstitial nephritis, not specified as acute or chronic Status: Acute Assessment and Plan: UA is grossly abnormal with evidence of left sided pyelonephritis on CT abd/pelvis. Urine culture demonstrates E. coli susceptible to ceftriaxone. She was recently hospitalized for pyelonephritis 05/2020 due to E. coli susceptible to ceftriaxone (resistant to augmentin, ampicillin, cefazolin). Due to fever yesterday, she will need to continue IV antibiotics for now. Continue IV ceftriaxone. Continue IV fluids. Continue acetaminophen PRN fever and pain. Urology was consulted from the emergency department and has recommended suppressive/prophylactic antibiotics (keflex 500mg QD) x3 months. (3) Hypokalemia: Code(s): E87.6 - Hypokalemia Status: Acute Assessment and Plan: Potassium is 3.2. Replace with 40 mEq PO potassium. Repeat BMP tomorrow. (4) Elevated fasting glucose: Code(s): R73.01 - Impaired fasting glucose Status: Acute Assessment and Plan: Glucose was 115. Hemoglobin A1c was 4.9. Subjective Date/time seen: 06/20/20 09:02 Interval history: Mrs. Crystal Coffman is a 20 y.o. female with PMH significant for UTI who is seen in follow-up for pyelonephritis. She was recently treated for left pyelonephritis 05/2020. She had a fever yesterday afternoon up to 102.6F. She reports mild nausea today. She denies vomiting and her appetite is good. She denies abdominal and flank pain. Bowels are regular with no diarrhea. She has no urinary complaints. She has no other complaints. Review of Systems Review of Systems: All systems reviewed & are unremarkable except as noted in HPI and below Exam Narrative: Exam Narrative: General: Pleasant, cooperative, well-developed, well-nourished 20 y.o. female lying supine in bed resting in no acute distress. She is seen with assistance from the virtual louver door assembler on the iPad. HEENT: Normocephalic and atraumatic. Moist mucous membranes. Neck: Supple. Cardiac: Regular rate and rhythm. S1 and S2 normal. Lungs: Lungs clear to auscultation bilaterally. Abdomen: Bowel sounds normoactive. Abdomen is soft, non-distended, and non-tender. : No CVA tenderness. Extremities: No lower extremity edema. No calf tenderness. SCDs in place. Neurological: Alert. Exam non-focal to casual conversation. Speech is clear. Skin: Warm and dry. Psychiatric: Judgment and insight intact. Mood pleasant. Objective Data Vital Signs Vital Signs: Vital Signs - 24 hr 06/19/20 14:00 06/19/20 14:13 06/19/20 14:43 Temperature 102.6 F H 102.6 F H 100.3 F H Pulse Rate 126 H Respiratory Rate 16 Blood Pressure 140/73 Pulse Oximetry 100 06/19/20 15:10 06/19/20 22:00 06/20/20 06:00 Temperature 100.0 F H 98.4 F 98.2 F Pulse Rate 105 H 90 Respiratory Rate 21 H 21 H Blood Pressure 138/81 129/62 Pulse Oximetry 100 100 Intake/Output Intake/Output: Intake & Output 06/17/20 06/18/20 06/19/20 06/20/20 23:59 23:59 23:59 23:59 Intake Total 2150 3850 2127 Output Total 900 1800 Balance 2150 2950 327 Meds/Results Medications: Active Medications Generic Name Dose Route Start Last Admin Trade Name Freq PRN Reason Stop Dose Admin Ceftriaxone Sodium/Dextrose 1 gm in 50 mls @ 100 mls/hr 06/19/20 21:00 06/19/20 21:55 Rocephin 1 Gm/D5w 50 Ml
--- NOTE | 2020-06-20 09:45 | PC.NURSE ---
I used the stratus adobe developer to introduce myself to the patient and explain what medications I would be giving the patient. I also used the adobe developer to do my assessment. The adobe developer's name was Michael and the session number was [id number].
[2020-06-20] MEDS: POTASSIUM CHLORIDE 20 MEQ TABLET 40 MEQ PO (09:49)
--- NOTE | 2020-06-20 13:50 | PC.NURSE ---
I used the client account representative to explain to the patient that I needed to switch her IV fluids and assess her pain. The client account representative's name was Sanna and the session number was [id number].
[2020-06-20] MEDS: SODIUM CHLORIDE 0.9% IV 1,000 ML 75 ML IV CONT ×2 (13:57→22:53)
[2020-06-20 14:00] VITALS: BP 128/65; PULSE 94; RESP 16; TEMP 36.5; O2SAT 99
[2020-06-20 22:00] VITALS: BP 116/72; PULSE 85; RESP 16; TEMP 36.5; O2SAT 100
[2020-06-21 05:37] LABS: Basophils Percent Auto 0.1 % (0.2-1.2); Eosinophils Absolute Auto 0.1 K/mm3 (0-0.3); Eosinophils Percent Auto 0.8 % (0-4.4); Hematocrit 37.1 % (37.0-47.0); Hemoglobin 12.4 g/dL (12.0-15.0); Immature Granulocyte Absolute 0.05 K/mm3 (0.00-0.031); Immature Granulocyte Percent A 0.7 % (0-0.5); Lymphocytes Percent Auto 26.7 % (18.3-44.2); Mean Corpuscular HGB Conc 33.4 g/dl (32-36); Mean Corpuscular Hemoglobin 29.2 pg (26-34); Mean Corpuscular Volume 87.5 fl (80-100); Mean Platelet Volume 9.6 fl (7.4-10.4); Monocytes Absolute Auto 0.7 K/mm3 (0.1-0.6); Monocytes Percent Auto 9.6 % (2.6-8.5); Neutrophils Absolute Auto 4.4 K/mm3 (1.3-6.7); Neutrophils Percent Auto 62.1 % (45.5-73.1); Platelet Count Result 295 k/mm3 (150-375); Red Blood Count 4.24 M/mm3 (4.2-5.4); Red Cell Distribution Width 13.2 % (11.5-14.5); White Blood Count 7.1 K/mm3 (4.5-10.0)
[2020-06-21 05:54] LABS: Anion Gap 8 mmol/L (8-16); Blood Urea Nitrogen 8 mg/dL (7-17); Calcium 8.2 mg/dL (8.4-10.2); Carbon Dioxide 25 mmol/L (22-30); Chloride 104 mmol/L (98-107); Estimated CRCL calculation 127 ml/min; Estimated Glomerular Filt Rate > 60; Glucose 103 mg/dL (65-105); Magnesium 1.9 mg/dL (1.6-2.3); Potassium 3.7 mmol/L (3.4-5.0); Sodium 137 mmol/L (137-145)
[2020-06-21 06:00] VITALS: BP 116/59; PULSE 77; RESP 14; TEMP 36.6; O2SAT 100
--- NOTE | 2020-06-21 08:43 | PM.DS ---
DS: Admitting Diagnosis Admitting Diagnosis Admitting Diagnosis: Severe sepsis, pyelonephritis DS: Discharge Diagnosis Discharge Diagnosis (1) Pyelonephritis: Code(s): N12 - Tubulo-interstitial nephritis, not specified as acute or chronic Status: Acute Assessment and Plan: Discharge Summary (Date of service 06/21/20): Mrs. Crystal Coffman is a healthy 20 y.o. female with PMH significant for recent episode of pyelonephritis 05/25/2020 who presented to the emergency department for the evaluation of right flank pain. UA was grossly abnormal and there was evidence of left sided pyelonephritis on CT abd/pelvis. She was treated with IV ceftriaxone and admitted to the hospitalist service. Urology was consulted due to recurrent pyelonephritis. Urine culture demonstrated E. coli susceptible to ceftriaxone. She was afebrile for >48 hr and symptoms resolved. She was discharged on PO cefdinir. Urology, Dr. James, recommended suppressive/prophylactic antibiotic therapy with macrobid at discharge given resistance to cephalexin on final sensitivities. She was advised to follow-up with urology in 2 weeks outpatient. She was discharged in stable condition on the afternoon of 06/21/20. (2) Severe sepsis: Code(s): A41.9 - Sepsis, unspecified organism; R65.20 - Severe sepsis without septic shock Status: Acute Assessment and Plan: Supported by fever, tachycardia, and leukocytosis. Lactic acid was elevated initialy at 2.9 and reflex was 0.7. UTI was felt to be the etiology for sepsis. She was afebrile for 48hr at the time of discharge. Blood cultures revealed no growth to date. (3) Hypokalemia: Code(s): E87.6 - Hypokalemia Status: Acute Assessment and Plan: Potassium was low initially and replaced. Potassium normalized. (4) Elevated fasting glucose: Code(s): R73.01 - Impaired fasting glucose Status: Acute Assessment and Plan: Glucose was 115 on AM labs. Hemoglobin A1c was 4.9. DS: Summary Hospital Course Reason for hospitalization: Right flank pain Hospital Course: As above. Status at Discharge Functional status at discharge: independent ambulation Overall status at discharge: patient is back to baseline Time Spent with Patient Time attestation: Total time spent providing and/or coordinating discharge services: 35 minutes Exam Narrative: Exam Narrative: Vitals at presentation: Temp Pulse Resp BP Pulse Ox 103.1 F H 140 H 18 149/79 H 100 06/18/20 20:08 06/18/20 20:08 06/18/20 20:08 06/18/20 20:08 06/18/20 20:08 Vitals at discharge: Temp Pulse Resp BP Pulse Ox 98.8 F 79 16 120/69 99 06/21/20 14:00 06/21/20 14:00 06/21/20 14:00 06/21/20 14:00 06/21/20 14:00 General: Well-developed and well-nourished 20 y.o. female lying supine in bed in no acute distress. She is seen with the wolf hunter service on the iPad.. HEENT: Normocephalic and atraumatic. Oral mucosa moist. Neck: Supple. Cardiac: Regular rate and rhythm. S1 and S2 normal. Lungs: Lungs clear to auscultation bilaterally. Abdomen: Bowel sounds normoactive. Abdomen is soft, non-distended, and non-tender. : No CVA tenderness. Extremities: No lower extremity edema. No calf tenderness. Neurological: Alert. Exam non-focal to casual conversation. Speech is clear. Skin: Warm and dry. Psychiatric: Judgment and insight intact. Mood pleasant and affect appropriate. DS: Data Data Completed and Pending Labs on day of discharge: Labs from last 24 hours 06/21/20 06/21/20 04:56 04:56 WBC 7.1 RBC 4.24 Hgb 12.4 Hct 37.1 MCV 87.5 MCH 29.2 MCHC 33.4 RDW 13.2 Plt Count 295 MPV 9.6 Immature Gran %
--- NOTE | 2020-06-21 09:30 | PC.NURSE ---
Patient updated on plan of care for today, head to toe assessment performed, pharmacy preference clarified, and explained patient to be discharged this afternoon if she has no fevers and to take oral antibiotics at time of discharge. All questions and concerns answered at bedside using [employer] Product Lister #[id number]- Annamaria.
[2020-06-21 14:00] VITALS: BP 120/69; PULSE 79; RESP 16; TEMP 37.1; O2SAT 99
--- NOTE | 2020-06-21 16:35 | PC.NURSE ---
Discharge instructions and medications reviewed with patient. Informed patient antibiotics sent to [facility] in [place], [place] and to ensure she completes antibiotic course. [employer] Customer Engagement Representative used with Cristofer #[id number]. All questions and concerns answered at this time.
== END 2020-06-21 16:50 | disposition home or self-care (01) | DRG 720 ==
LOC: ANHED 23:04 → ANH2MED 23:36
PROVIDERS: Physician Assistant; Admitting Provider Family Medicine; Emergency Provider Emergency Medicine; Visit Provider Hospitalist
DX: A41.51 Sepsis due to Escherichia coli [E. coli] (principal); R65.20 Severe sepsis without septic shock; N10 Acute pyelonephritis; E87.6 Hypokalemia; R73.01 Impaired fasting glucose
CPT/HCPCS: 36415; 74177; 80048; 80053; 81001; 81025; 83036; 83605; 83735; 85025; 87040; 87077; 87086; 87088; 87186; 96361; 96365; 96367; 96374; 99285; A9270; G0378; G0379; J0131; J0696; J2405; J7030; Q9967